=== PATIENT | male | born 1990 | race Caucasian/White ===

== ENCOUNTER 2020-09-11 08:16 | Emergency (ER) | payer OTHER, SELFPAY ==
--- NOTE | ~2020-09-11 | US_ITS ---
EXAMINATION: US VENOUS ULTRASOUND WITH DOPPLER LOWER EXTREMITY, RIGHT CLINICAL INFORMATION: Calf pain. Cramping. COMPARISON: None TECHNIQUE: Ultrasound of the deep veins is performed from the hip to the calf with compression sonography and color and pulse Doppler assessment. Spectral analysis with color-flow imaging is performed. FINDINGS: There is normal venous compression and respiratory variation and augmented flow. The visualized common femoral vein, superficial femoral vein, profunda femoral vein, popliteal vein, and the trifurcation region shows no evidence of deep venous thrombosis. There is no significant popliteal fossa cyst. If the patient's symptoms persist, followup ultrasound in 5 days 7 days might be of value to exclude proximal propagation from a non-visualized calf vein. US/US venous duplex LE RT IMPRESSION: No DVT demonstrated in the right lower extremity.
[2020-09-11 08:19] VITALS: BP 131/63; PULSE 78; RESP 16; TEMP 36.3; O2SAT 99; BMI 28.1
--- NOTE | 2020-09-11 08:46 | ED_ITS ---
HPI - Extremity Injury (Lower) General Chief Complaint: Extremity Injury, Lower Stated Complaint: rt leg pain,no inj Time Seen by Provider: 09/11/20 08:38 Source: patient Mode of arrival: ambulatory History of Present Illness HPI Narrative: 30-year-old male with a past medical history of diabetes self managed presenting to the ED complaining of right calf pain x1 month worsening today radiating to right thigh. Reports calf feels tight. Denies known injury, trauma, falls, numbness, tingling, weakness, shortness of breath. Denies recent travel, long car rides, or exogenous hormone use. Is a cigarette smoker Related Data Previous Rx's Medication Instructions Recorded acetaminophen [Tylenol Extra 500 mg PO Q6H PRN #20 tab 09/11/20 Strength] lidocaine [Lidoderm] 1 patch TOPICAL DAILY PRN #30 ea 09/11/20 MDD remove after 12 hours naproxen 500 mg PO BID PRN 10 Days #20 tab 09/11/20 Allergies Allergy/AdvReac Type Severity Reaction Status Date / Time bee pollen [BEE STINGS] Allergy Unknown HIVES Verified 09/11/20 08:22 tomato [TOMATO] Allergy Unknown THROAT Verified 09/11/20 08:22 SWELLING Review of Systems Review of Systems: Constitutional: No Fever, No Chills Cardiovascular: No Chest Pain, No SOB Respiratory: No dyspnea Musculoskeletal: + joint pain Skin: No Skin Lesions, No rash Neuro: No Weakness, No Numbness, No Paresthesias Yes all other systems are reviewed and are negative PMFSH Past Medical History Attestation statement: The following information was validated with the patient. Medical History (Updated 09/11/20 @ 10:21 by KENA De La O) Diabetes Social History Social History Advance Directives: No Advance Directives Information Provided: No Physical Exam Vital Signs: Vital Signs: Last Vital Signs Temp 97.3 F 09/11/20 08:19 Pulse 59 09/11/20 10:09 Resp 16 09/11/20 10:09 BP 102/44 L 09/11/20 10:09 Pulse Ox 96 09/11/20 10:09 Body Mass Index 28.1 Const: General: cooperative and healthy appearing Orientation/consciousness: patient oriented x3 Limitations: no limitations HENMT: Head: Yes normal to inspection Ears: hearing grossly normal bilaterally General nose exam: Normal external nose present Face and sinus: Yes normal facial exam Eyes: General: appearance normal, both eyes and all related structures EOM: EOMs intact bilaterally Neck: Neck: Yes normal visual inspection Resp: Effort & Inspection: normal respiratory effort Cardio: Rate: regular rate Peripheral pulses: dorsalis pedis present Skin: Rashes: no rashes Wounds: no wounds Neuro: General: patient oriented x3 Gait exam (Neuro): Normal gait present Extrem: General: Yes normal to inspection, Yes no pedal edema and Yes calf tenderness (right) Course Course Course Narrative: US venous duplex LE RT IMPRESSION: No DVT demonstrated in the right lower extremity. > imaging results discussed with patient including worrisome signs and symptoms and strict return precautions. He verbalized understanding and feel safe for discharge home MDM - Extremity Injury (Lower) MDM Narrative Medical decision making narrative: 30-year-old male with a past medical history of diabetes self managed presenting to the ED complaining of right calf pain x1 month worsening today radiating to right thigh. On exam VSS, NAD/well- appearing, physical exam as above, right calf tenderness elicited on exam. Concern for DVT. Low concern for PE. Plan: Venous duplex Lab Data Labs: Lab Results 09/11/20 Range/Units 08:46 POC Glucose 123 H (60-115) mg/dL Discharge Plan Discharge Clinical Impression: Calf pain Qualifiers: Laterality: right Qualified Code(s): M79.661 - Pain in right lower leg Patient Disposition: Home, Self-Care Instructions: Muscle Cramp (ED) Prescriptions: New acetaminophen [Tylenol Extra Strength] 500 mg tablet 500 mg PO Q6H PRN (Reason: pain or fever) Qty: 20 RF: 0 lidocaine [Lidoderm] 5 % adhesive patch,medicated 1 patch topical DAILY MDD remove after 12 hours PRN (Reason: pain) Qty: 30 RF: 0 naproxen 500 mg tablet 500 mg PO BID PRN (Reason: pain) 10 Days Qty: 20 RF: 0 Referrals: Physician,None [Primary Care Provider] - 2 days
[2020-09-11 08:48] VITALS: RESP 18
[2020-09-11 08:49] LABS: Glucose, Whole Blood 123 mg/dL (60-115)
--- NOTE | 2020-09-11 08:49 | PC.NURSE ---
POC CHECKED PER PA REQUEST. RESULT 123. PATIENT REPORTS HE IS DIABETIC BUT NOT ON ANY MEDICATIONS AT THIS TIME. PATIENT PRESENTED TO ED FOR PAIN IN RIGHT CALF. STATES HE HAS HAD PAIN FOR ABOUT 1 MONTH. REPORTS NOW PAIN RADIATING TO HIP AREA. PATIENT REPORTS CALF AREA TENDER UPON ASSESSMENT. PULSE POSITIVE IN FOOT AND FOOT WARM TO TOUCH. PATIENT AWARE OF PLAN FOR ULTRASOUND,
--- NOTE | 2020-09-11 09:32 | PC.NURSE ---
ULTRASOUND COMPLETED AT BEDSIDE
[2020-09-11 10:09] VITALS: BP 102/44; PULSE 59; RESP 16; O2SAT 96
== END 2020-09-11 10:39 | disposition home or self-care (01) ==
PROVIDERS: Emergency Provider Emergency Medicine
DX: M79.661 Pain in right lower leg (principal); E11.9 Type 2 diabetes mellitus without complications
CPT/HCPCS: 82947; 93971; 99284

== ENCOUNTER 2020-12-14 18:09 | Emergency (ER) | payer OTHER, SELFPAY ==
[2020-12-14 18:19] VITALS: BMI 24.4
[2020-12-14 18:35] VITALS: PULSE 121; RESP 24; O2SAT 100
[2020-12-14 18:43] VITALS: BP 130/88; PULSE 115; RESP 22; TEMP 36.4; O2SAT 99
--- NOTE | 2020-12-14 19:07 | ED_ITS ---
HPI - Overdose General Chief Complaint: Overdose Stated Complaint: od Time Seen by Provider: 12/14/20 19:00 Source: patient Mode of arrival: EMS Limitations: no limitations History of Present Illness HPI Narrative: Patient is a 29-year-old male who was BIBA after bystanders called 911 because he was unresponsive in his car. PD gave patient 4 mg of Narcan intranasally then EMS gave 2 mg IV Narcan. Patient was originally satting in the 30s when they arrived, pinpoint pupils, NPA started in route. Patient became more responsive. During my exam at the bedside, patient was responsive and talking, had no complaints except that he is very thirsty. As I was leaving, the patient started vomiting. Denies any other pain, chest pain or headache, SI or HI. Related Data Previous Rx's Medication Instructions Recorded acetaminophen [Tylenol Extra 500 mg PO Q6H PRN #20 tab 09/11/20 Strength] lidocaine [Lidoderm] 1 patch TOPICAL DAILY PRN #30 ea 09/11/20 MDD remove after 12 hours naproxen 500 mg PO BID PRN 10 Days #20 tab 09/11/20 Allergies Allergy/AdvReac Type Severity Reaction Status Date / Time bee pollen [BEE STINGS] Allergy Unknown HIVES Verified 09/11/20 08:22 tomato [TOMATO] Allergy Unknown THROAT Verified 09/11/20 08:22 SWELLING Review of Systems Review of Systems: Yes all other systems are reviewed and are negative [facility] Past Medical History Medical History (Updated 12/14/20 @ 20:12 by Ada Lopez PA-C) Diabetes Social History Social History Advance Directives: No Advance Directives Information Provided: Yes Physical Exam Vital Signs: Vital Signs: Last Vital Signs Temp 97.6 F 12/14/20 18:43 Pulse 109 H 12/14/20 19:47 Resp 16 12/14/20 19:47 BP 117/80 12/14/20 19:47 Pulse Ox 99 12/14/20 18:43 Body Mass Index 24.4 Const: General: cooperative and no acute distress Nutritional Appearance: average body habitus Orientation/consciousness: patient oriented x3 HENMT: Head: Yes normal to inspection, Yes No palpable skull fracture present, Yes normocephalic and Yes atraumatic Ears: hearing grossly normal bilaterally General nose exam: Normal external nose present Face and sinus: Yes normal facial exam Eyes: General: appearance normal, both eyes and all related structures Pupils: Pupil size comments bilaterally 2 Neck: Neck: Yes normal visual inspection and Yes full ROM Resp: Effort & Inspection: normal respiratory effort and able to speak in complete sentences Cardio: Rate: tachycardic GI: Inspection: Yes normal to inspection Skin: General skin exam: no rashes or lesions noted Neuro: General: patient oriented x3 Extrem: General: Yes normal to inspection and Yes full ROM Psych: Appearance: disheveled Speech and movement: Normal speech and movement present Attitude: cooperative Course Course Course Narrative: 29-year-old male who was found unresponsive in his car, given Narcan by PD and EMS, responsive in the emergency department, will monitor, do basic labs, get EKG, tox screen and have project manager/team coach speak with patient. Reevaluation(s) Reevaluation #1: Patient's vital signs are stable stands slightly tachycardic heart rate at 109. Patient is requesting discharge in refusing labs. Will discharge with a safe ride home. Will also discharge with Narcan. Discharge Plan Discharge Clinical Impression: Drug overdose Qualifiers: Encounter type: initial encounter Injury intent: accidental or unintentional Qualified Code(s): T50.901A - Poisoning by unspecified drugs, medicaments and biological substances, accidental (unintentional), initial encounter Patient Disposition: Home, Self-Care Prescriptions: No Action acetaminophen [Tylenol Extra Strength] 500 mg tablet 500 mg PO Q6H PRN (Reason: pain or fever) Qty: 20 RF: 0 lidocaine [Lidoderm] 5 % adhesive patch,medicated 1 patch topical DAILY MDD remove after 12 hours PRN (Reason: pain) Qty: 30 RF: 0 naproxen 500 mg tablet 500 mg PO BID PRN (Reason: pain) 10 Days Qty: 20 RF: 0
--- NOTE | 2020-12-14 19:27 | MHC.RECOVSUP ---
? Reason for consult Recovery Support o Current location: ED15 o Identified substance use concern: - Overdose ? Intervention: o <del>ATS</del> <del>bed</del> <del>search</del> <del>started/completed/in</del> <del>process</del> <del>o</del> <del>MAT</del> <del>started</del> <del>or</del> <del>to</del> <del>be</del> <del>started</del> <del>o</del> <del>Community</del> <del>resources</del> <del>provided</del> <del>o</del> <del>Harm</del> <del>reduction</del> <del>discussion</del> ? Plan: o <del>Referral</del> <del>to</del> <del>[facility]</del> <del>o</del> <del>Bed</del> <del>search</del> <del>in</del> <del>progress</del> <del>to</del> <del>o</del> <del>Follow</del> <del>up</del> <del>tomorrow</del> <del>o</del> <del>Patient</del> <del>awaiting</del> <del>crisis</del> <del>evaluation</del> <del>o</del> <del>Patient</del> <del>to</del> <del>follow</del> <del>up</del> <del>with</del> <del>[facility]</del> <del>after</del> <del>discharge</del> ? Additional information: Patient refused any services
[2020-12-14 19:47] VITALS: BP 117/80; PULSE 109; RESP 16
[2020-12-14 20:22] VITALS: BP 101/69; PULSE 108; RESP 16; TEMP 36.5; O2SAT 97
== END 2020-12-14 20:36 | disposition home or self-care (01) ==
PROVIDERS: Emergency Provider Emergency Medicine
DX: T50.901A Poisoning by unspecified drugs, medicaments and biological substances, accidental (unintentional), initial encounter (principal); R11.10 Vomiting, unspecified; Y92.810 Car as the place of occurrence of the external cause; R00.0 Tachycardia, unspecified; E11.9 Type 2 diabetes mellitus without complications
CPT/HCPCS: 99284